=== PATIENT | female | born 1985 | race African-American/Black ===

== ENCOUNTER 2023-09-01 00:30 | Emergency (ER) | payer OTHER ==
[~2023-09-01] VITALS: Ht 162.6 cm; Wt 108.6 kg
[2023-09-01] MEDS ORDERED: PREN1TAB80 PO (00:44)
[2023-09-01] MEDS: SODIUM CHLORIDE 0.9% 1,000 ML IV ONE (01:26)
[2023-09-01 01:31] LABS: BASOPHILS % (AUTO) 0.4 % (0.0-2.0); EOSINOPHILS % (AUTO) 0.8 % (1.0-6.0); HEMATOCRIT 24.1 % (36-46); HEMOGLOBIN 7.9 g/dL (12.0-16.0); LYMPHOCYTES # (AUTO) 2.3 K/uL (1.0-4.8); LYMPHOCYTES % (AUTO) 18.7 % (22.0-44.0); MEAN CORPUSCULAR HEMOGLOBIN 27.9 pg (26.0-34.0); MEAN CORPUSCULAR HGB CONC 32.6 G/dL (31.0-37.0); MEAN CORPUSCULAR VOLUME 85 fL (80-100); MONOCYTES # (AUTO) 0.8 K/uL (0.1-1.0); MONOCYTES % (AUTO) 6.6 % (2.0-9.0); NEUTROPHILS % (AUTO) 73.5 % (40.0-70.0); PLATELET COUNT (AUTO) 194 K/uL (150-450); RED BLOOD CELL COUNT(AUTO) 2.82 MIL/uL (4.00-5.20); RED CELL DISTRIBUTION WIDTH 13.8 % (11.5-14.5); WHITE BLOOD COUNT (AUTO) 12.2 K/uL (4.5-11.0)
[2023-09-01 02:26] VITALS: TEMP 98.5
[2023-09-01] MEDS: IBUPROFEN 600 MG TABLET PO ONE (04:50)
[2023-09-01 05:14] VITALS: BP 133/70; PULSE 71; RESP 17
[2023-09-01 05:29] LABS: HEMATOCRIT 21.1 % (36-46)
== END 2023-09-01 07:35 | disposition admitted as inpatient to this hospital (09) ==
LOC: EMS 00:30
DX: O03.4 Incomplete spontaneous abortion without complication (principal); D64.9 Anemia, unspecified; Z3A.10 10 weeks gestation of pregnancy
CPT/HCPCS: 76801; 84702; 85014; 85018; 85025; 86850; 86900; 86901; 96360; 99285; 36415-L1; 36415-TC